=== PATIENT | female | born 2000 | race Caucasian/White ===

== ENCOUNTER 2020-09-17 00:21 | Inpatient (IN) | payer OTHER ==
[~2020-09-17 00:21] MED LIST: BACLOFEN 10MG T10 MG PO; BACTRIM DS TAB1 EACH PO; IRON325 M1 PO; KEFLEX250 MG PO; PRENATAL FORMU1 EACH PO
[2020-09-17 01:02] LABS: BILIRUBIN NEGATIVE (NEGATIVE); BLOOD NEGATIVE Ery/uL (NEGATIVE); CLARITY CLEAR (CLEAR); COLOR YELLOW (YELLOW); GLUCOSE (U) NORMAL (NORMAL); LEUKOCYTES NEGATIVE Leu/uL (NEGATIVE); NITRITE NEGATIVE (NEGATIVE); PROTEIN NEGATIVE (NEGATIVE); UROBILINOGEN 0.2 mg/dL (0.2-1.0); pH 7.5 (5.0-9.0)
[2020-09-17 01:04] LABS: AMPHETAMINES NEGATIVE (NEGATIVE); BARBITURATES NEGATIVE (NEGATIVE); ECSTASY (MDMA) NEGATIVE (NEGATIVE); MARIJUANA (THC) NEGATIVE (NEGATIVE); METHADONE NEGATIVE (NEGATIVE); OPIATES NEGATIVE (NEGATIVE); OXYCODONE NEGATIVE (NEGATIVE)
[2020-09-17 07:59] LABS: BASOPHIL 0.2 % (0-2); EOSINOPHIL 1.2 % (0-5); HGB 10.8 g/dl (12.5-16.0); LYMPHOCYTE 17.5 % (15-48); MCH 23.4 pg (25.0-31.0); MCHC 31.8 g/dL (32.0-36.0); MCV 73.8 fL (78.0-100.0); MONOCYTE 7.4 % (0-12); NEUTROPHIL 73.5 % (41-80); NRBC 0; PLT 215 K/uL (150-400); RBC 4.61 M/uL (4.20-5.40); RDW 20.2 % (11.5-14.0); WBC 8.6 K/uL (4.0-10.5)
[2020-09-17 08:45] LABS: ALBUMIN 2.5 g/dL (3.4-5.0); BILIRUBIN - TOTAL 0.2 mg/dL (0.2-1.0); CREATININE 0.43 mg/dL (0.51-0.95); GLOBULIN (CALCULATION) 3.6 g/dL; POTASSIUM 4.2 mmol/L (3.5-5.1); TOTAL PROTEIN 6.1 g/dL (6.4-8.2)
== END 2020-09-17 12:50 | disposition home or self-care (01) | DRG 833 ==
LOC: FOB 00:21
PROVIDERS: ADMIT Obstetrics & Gynecology
DX: O26.893 Other specified pregnancy related conditions, third trimester (principal); Z3A.38 38 weeks gestation of pregnancy; S39.91XA Unspecified injury of abdomen, initial encounter; W00.2XXA Other fall from one level to another due to ice and snow, initial encounter; R10.2 Pelvic and perineal pain; Y92.008 Other place in unspecified non-institutional (private) residence as the place of occurrence of the external cause
CPT/HCPCS: 36415; 80053; 80305; 81003; 84112; 85025; J2300; J7120

== ENCOUNTER 2020-09-19 20:25 | Inpatient (IN) | payer OTHER ==
[2020-09-19 21:15] LABS: HCT 35.2 % (37.0-47.0); HGB 11.3 g/dl (12.5-16.0); MCH 23.5 pg (25.0-31.0); MCHC 32.1 g/dL (32.0-36.0); MCV 73.3 fL (78.0-100.0); PLT 235 K/uL (150-400); RDW 19.8 % (11.5-14.0); WBC 7.9 K/uL (4.0-10.5)
[2020-09-19 21:24] LABS: BILIRUBIN NEGATIVE (NEGATIVE); BLOOD NEGATIVE Ery/uL (NEGATIVE); CLARITY CLEAR (CLEAR); COLOR YELLOW (YELLOW); GLUCOSE (U) NORMAL (NORMAL); LEUKOCYTES NEGATIVE Leu/uL (NEGATIVE); NITRITE NEGATIVE (NEGATIVE); PROTEIN NEGATIVE (NEGATIVE); UROBILINOGEN 0.2 mg/dL (0.2-1.0)
[2020-09-21 05:50] LABS: HCT 29.5 % (37.0-47.0); HGB 9.4 g/dl (12.5-16.0); MCH 23.7 pg (25.0-31.0); MCHC 31.9 g/dL (32.0-36.0); MCV 74.5 fL (78.0-100.0); MPV 11.7 fL (6.0-9.5); RBC 3.96 M/uL (4.20-5.40); RDW 19.7 % (11.5-14.0); WBC 8.9 K/uL (4.0-10.5)
== END 2020-09-22 12:09 | disposition home or self-care (01) | DRG 806 ==
LOC: FOB 20:25
PROVIDERS: ADMIT Obstetrics & Gynecology
PROC: 10E0XZZ Delivery of Products of Conception, External Approach (ICD-10-PCS; principal; 2020-09-20)
PROC: 0KQM0ZZ Repair Perineum Muscle, Open Approach (ICD-10-PCS; 2020-09-20)
PROC: 10907ZC Drainage of Amniotic Fluid, Therapeutic from Products of Conception, Via Natural or Artificial Opening (ICD-10-PCS; 2020-09-20)
DX: O99.214 Obesity complicating childbirth (principal); D62 Acute posthemorrhagic anemia; Z37.0 Single live birth; E66.9 Obesity, unspecified; Z3A.39 39 weeks gestation of pregnancy; O99.02 Anemia complicating childbirth; R87.612 Low grade squamous intraepithelial lesion on cytologic smear of cervix (LGSIL); O34.43 Maternal care for other abnormalities of cervix, third trimester; Z20.822 Contact with and (suspected) exposure to COVID-19; O70.1 Second degree perineal laceration during delivery
CPT/HCPCS: 36415; 81003; 86850; 86900; 86901; J0595; J2916; J7120; U0002

== ENCOUNTER 2021-06-08 16:36 | Emergency (ER) | payer OTHER ==
[2021-06-08 19:31] LABS: BILIRUBIN NEGATIVE (NEGATIVE); BLOOD NEGATIVE Ery/uL (NEGATIVE); CLARITY CLEAR (CLEAR); COLOR YELLOW (YELLOW); GLUCOSE (U) NORMAL (NORMAL); LEUKOCYTES NEGATIVE Leu/uL (NEGATIVE); NITRITE NEGATIVE (NEGATIVE); PROTEIN NEGATIVE (NEGATIVE); SPECIFIC GRAVITY 1.025 (1.001-1.030); UROBILINOGEN 0.2 mg/dL (0.2-1.0); pH 6.5 (5.0-9.0)
[2021-06-08 19:44] LABS: BASOPHIL 0.3 % (0-2); EOSINOPHIL 1.2 % (0-5); HCT 37.3 % (37.0-47.0); HGB 11.8 g/dl (12.5-16.0); LYMPHOCYTE 24.6 % (15-48); MCHC 31.6 g/dL (32.0-36.0); MCV 72.9 fL (78.0-100.0); MONOCYTE 5.5 % (0-12); NEUTROPHIL 68.1 % (41-80); NRBC 0; PLT 278 K/uL (150-400); RBC 5.12 M/uL (4.20-5.40); RDW 15.9 % (11.5-14.0); WBC 9.1 K/uL (4.0-10.5)
[2021-06-08 19:51] LABS: ALBUMIN 3.9 g/dL (3.4-5.0); BILIRUBIN - TOTAL 0.8 mg/dL (0.2-1.0); BUN/CREAT RATIO (CALC) 13.6 RATIO; CREATININE 0.59 mg/dL (0.51-0.95); GLOBULIN (CALCULATION) 4.1 g/dL; POTASSIUM 3.8 mmol/L (3.5-5.1)
[2021-06-08] MEDS ORDERED: PRENATAL FORMU1 EACH PO (21:56)
== END 2021-06-08 22:11 | disposition home or self-care (01) ==
LOC: FER 16:36
PROVIDERS: Internal Medicine
DX: O99.891 Other specified diseases and conditions complicating pregnancy (principal); R10.31 Right lower quadrant pain; O99.011 Anemia complicating pregnancy, first trimester; Z88.0 Allergy status to penicillin; Z3A.01 Less than 8 weeks gestation of pregnancy
CPT/HCPCS: 36415; 76817; 80053; 81003; 84702; 85025

== ENCOUNTER 2021-06-14 16:48 | Emergency (ER) | payer OTHER ==
[2021-06-14 18:24] LABS: BILIRUBIN NEGATIVE (NEGATIVE); BLOOD NEGATIVE Ery/uL (NEGATIVE); CLARITY CLEAR (CLEAR); COLOR YELLOW (YELLOW); GLUCOSE (U) NORMAL (NORMAL); LEUKOCYTES NEGATIVE Leu/uL (NEGATIVE); NITRITE NEGATIVE (NEGATIVE); PROTEIN NEGATIVE (NEGATIVE); UROBILINOGEN 0.2 mg/dL (0.2-1.0)
[2021-06-14 18:28] LABS: BASOPHIL 0.4 % (0-2); EOSINOPHIL 2.3 % (0-5); HCT 35.7 % (37.0-47.0); LYMPHOCYTE 26.1 % (15-48); MCH 22.4 pg (25.0-31.0); MCHC 30.8 g/dL (32.0-36.0); MCV 72.7 fL (78.0-100.0); MONOCYTE 6.5 % (0-12); MPV 11.1 fL (6.0-9.5); NEUTROPHIL 64.4 % (41-80); NRBC 0; PLT 312 K/uL (150-400); RBC 4.91 M/uL (4.20-5.40); RDW 16.2 % (11.5-14.0)
[2021-06-14 18:39] LABS: ALBUMIN 3.6 g/dL (3.4-5.0); BILIRUBIN - TOTAL 0.3 mg/dL (0.2-1.0); BUN/CREAT RATIO (CALC) 10.9 RATIO; CREATININE 0.55 mg/dL (0.51-0.95); GLOBULIN (CALCULATION) 3.7 g/dL; POTASSIUM 3.5 mmol/L (3.5-5.1); TOTAL PROTEIN 7.3 g/dL (6.4-8.2)
== END 2021-06-14 22:00 | disposition home or self-care (01) ==
LOC: FER 16:48
PROVIDERS: Emergency Medicine
DX: O34.81 Maternal care for other abnormalities of pelvic organs, first trimester (principal); N83.201 Unspecified ovarian cyst, right side; Z88.0 Allergy status to penicillin; Z3A.01 Less than 8 weeks gestation of pregnancy
CPT/HCPCS: 36415; 76805; 80053; 81003; 82150; 83690; 84702; 85025

== ENCOUNTER 2021-09-27 18:55 | Emergency (ER) | payer OTHER ==
[2021-09-27 19:54] LABS: INFLUENZA A NAA NEGATIVE (NEGATIVE)
[2021-09-27 19:55] LABS: CORONAVIRUS 2019 SARS-COV-2 POSITIVE (NEGATIVE)
[2021-09-27 20:48] LABS: BASOPHIL 0.1 % (0-2); EOSINOPHIL 0.2 % (0-5); HCT 32.1 % (37.0-47.0); HGB 10.4 g/dl (12.5-16.0); MCH 22.8 pg (25.0-31.0); MCHC 32.4 g/dL (32.0-36.0); MCV 70.4 fL (78.0-100.0); MONOCYTE 8.8 % (0-12); MPV 10.8 fL (6.0-9.5); NEUTROPHIL 84.7 % (41-80); NRBC 0; PLT 228 K/uL (150-400); RBC 4.56 M/uL (4.20-5.40); RDW 17.2 % (11.5-14.0); WBC 8.3 K/uL (4.0-10.5)
[2021-09-27 20:57] LABS: BUN/CREAT RATIO (CALC) 4.3 RATIO; CREATININE 0.46 mg/dL (0.51-0.95); POTASSIUM 3.5 mmol/L (3.5-5.1)
== END 2021-09-27 23:08 | disposition home or self-care (01) ==
LOC: FER 18:55
PROVIDERS: Nurse Practitioner Family
DX: O98.512 Other viral diseases complicating pregnancy, second trimester (principal); U07.1 COVID-19; Z3A.19 19 weeks gestation of pregnancy; Z88.0 Allergy status to penicillin
CPT/HCPCS: 36415; 36600; 71275; 80048; 82306; 82803; 85025; 85379; 93005; J7120; Q9967; U0002

== ENCOUNTER 2022-02-11 11:22 | Inpatient (IN) | payer OTHER ==
[~2022-02-11] VITALS: Ht 154.9 cm; Wt 95.3 kg
[2022-02-11 12:01] LABS: BILIRUBIN NEGATIVE (NEGATIVE); BLOOD NEGATIVE Ery/uL (NEGATIVE); CLARITY CLEAR (CLEAR); COLOR YELLOW (YELLOW); GLUCOSE (U) NORMAL (NORMAL); LEUKOCYTES NEGATIVE Leu/uL (NEGATIVE); NITRITE NEGATIVE (NEGATIVE); PROTEIN NEGATIVE (NEGATIVE); UROBILINOGEN 0.2 mg/dL (0.2-1.0)
[2022-02-11 15:09] LABS: HCT 27.7 % (37.0-47.0); HGB 8.1 g/dl (12.5-16.0); MCH 18.7 pg (25.0-31.0); MCHC 29.2 g/dL (32.0-36.0); PLT 211 K/uL (150-400); RBC 4.33 M/uL (4.20-5.40); RDW 21.2 % (11.5-14.0); WBC 8.6 K/uL (4.0-10.5)
[2022-02-13 05:50] LABS: HCT 25.5 % (37.0-47.0)
[2022-02-13 05:59] LABS: HGB 7.4 g/dL (12.5-16.0)
== END 2022-02-14 13:13 | disposition home or self-care (01) | DRG 806 ==
LOC: FOD 11:22 → FOB 11:23 → FOD 14:56 → FOB 14:58
PROVIDERS: ADMIT Obstetrics & Gynecology
PROC: 10E0XZZ Delivery of Products of Conception, External Approach (ICD-10-PCS; principal; 2022-02-12)
DX: O99.214 Obesity complicating childbirth (principal); D62 Acute posthemorrhagic anemia; Z37.0 Single live birth; Z3A.39 39 weeks gestation of pregnancy; O99.02 Anemia complicating childbirth; D50.9 Iron deficiency anemia, unspecified; Z20.822 Contact with and (suspected) exposure to COVID-19; O99.824 Streptococcus B carrier state complicating childbirth; O99.284 Endocrine, nutritional and metabolic diseases complicating childbirth; E28.2 Polycystic ovarian syndrome; E55.9 Vitamin D deficiency, unspecified; O99.344 Other mental disorders complicating childbirth; F41.0 Panic disorder [episodic paroxysmal anxiety]; Z88.0 Allergy status to penicillin; Z86.16 Personal history of COVID-19
CPT/HCPCS: 36415; 71275; 81003; 85014; 85018; 86850; 86900; 86901; 93005; J0595; J0690; J1650; J2001; J2405; J2916; J7120; Q9967; U0002